=== PATIENT | male | born 1960 | race Caucasian/White ===

== ENCOUNTER 2020-01-15 16:55 | Emergency (ER) | payer OTHER ==
[~2020-01-15] VITALS: Ht 177.8 cm; Wt 77.3 kg
--- NOTE | 2020-01-15 17:10 | NUR ---
SECURITY LOCKED PT BELONGINGS IN AMBULANCE BAY LOCKERS
[2020-01-15] MEDS ORDERED: normal saline 1000ml 1,000 ML IVB ONE (18:44)
[2020-01-15] MEDS ORDERED: normal saline 1000ML IV soln IVB ONE (19:30)
[2020-01-15] MEDS ORDERED: metoclopramide 5 mg/ml inj IV ONE (19:35)
[2020-01-15] MEDS ORDERED: diphenhydrAMINE 50 mg/ml inj IV ONE (19:35)
[2020-01-15 19:53] VITALS: BP 156/87
--- NOTE | 2020-01-15 20:51 | NUR ---
SONA ASSISTING IN GAIT TESTING THE PATIENT RIGHT NOW.
== END 2020-01-15 21:19 | disposition home or self-care (01) ==
LOC: ER 16:56
DX: F10.129 Alcohol abuse with intoxication, unspecified (principal); F15.90 Other stimulant use, unspecified, uncomplicated; R06.02 Shortness of breath; Z59.0 Homelessness; Z72.89 Other problems related to lifestyle; Y90.0 Blood alcohol level of less than 20 mg/100 ml
CPT/HCPCS: 36415; 80320; 96374; 96375; 99284; J1200; J2765; J7030